=== PATIENT | female | born 1960 | race Caucasian/White ===

== ENCOUNTER 2022-12-09 04:53 | Observation (INO) ==
--- NOTE | 2022-10-07 15:44 | PAT Medication Instructions ---
Medication Instructions Date of Service October 07, 2022 Home Medications estradiol 0.5 mg tablet 0.5 mg PO QAM gabapentin 100 mg capsule 100 mg PO TID medroxyprogesterone 5 mg tablet 5 mg PO QAM meloxicam 15 mg tablet 15 mg PO QAM ASK your surgeon for instructions estradiol 0.5 mg tablet 0.5 mg PO QAM medroxyprogesterone 5 mg tablet 5 mg PO QAM meloxicam 15 mg tablet 15 mg PO QAM Take morning of surgery With a small sip of water, OTHERWISE NOTHING TO EAT OR DRINK AFTER MIDNIGHT: gabapentin 100 mg capsule 100 mg PO TID Take evening before surgery gabapentin 100 mg capsule 100 mg PO TID Other Notes If you have any questions please call us at [phone] or [phone] or [phone] or [phone]
--- NOTE | 2022-10-12 12:09 | Anesthesiology Consultation ---
Date of Service October 12, 2022 Assessment & Plan (1) Encounter for pre-operative examination: Chart Review Chart Review: Acceptable Risk for Surgery (pending PCP clearance (10/30/22)) and Patient seen in Pre Admission Testing - Awaiting PCP clearance (10/30/22) - Due to bilateral TKA- patient is NOT a Same Day Joint candidate. Pros and cons re: bilateral TKA discussed with patient. Pt wishes to proceed with bilateral TKA Per PAT appt on 10/12/22, patient denies any recent travel or large group activities. Pt is NOT vaccinated for Covid. Will leave to surgeon's discretion if preop Covid testing needed. Educated on importance of using Covid precautions one week prior to surgery Teaching & Discussion Pre-Anesthesia Teaching/Discussion Notes: Instructed NPO after midnight before surgery,except medications with 15 cc of water. Medication instructions provided according to the PAT guidelines. History Surgery Operation Date: 11/25/22 07:00 Proposed Procedures p Bilateral Total Knee Arthroplasty - Gonzalez Wilcox DO Height/Weight Height: 5 ft 4 in Weight: 66.3 kg Allergies Allergy/AdvReac Type Severity Reaction Status Date / Time oxycodone Allergy Mild itchy Verified 10/07/22 10:52 Medications Home Medications Medication Instructions Recorded Confirmed Last Taken estradiol 0.5 mg tablet 0.5 mg PO QAM 10/07/22 10/07/22 Unknown gabapentin 100 mg capsule 100 mg PO TID 10/07/22 10/07/22 Unknown medroxyprogesterone 5 mg tablet 5 mg PO QAM 10/07/22 10/07/22 Unknown meloxicam 15 mg tablet 15 mg PO QAM 10/07/22 10/07/22 Unknown Past Medical History Medical History History of COVID-19 07/2021--mild symptoms, no symptoms now Osteoarthritis Trigeminal neuralgia of left side of face Reason for gabapentin (dx'ed three years ago)- stable and controlled Exercise / Class Metabolic Activity II 4-5 Yardwork/Stairs/Walk up hill (one flight of stairs - no chest pain or SOB ) Past Family History Family History Other No family history of adverse response to anesthesia Past Surgical History Surgical History History of augmentation of both breasts History of endometrial ablation History of tooth extraction Past Anesthesia History No Hx of Anesthesia Complications (awareness with breast augmentation - unsure if intubated ) and No Family Hx of Anesthesia Complications (with exception to sister - PONV ) History of PONV No Hx of PONV and No Hx of Motion Sickness Social History Smoking Status: Former smoker Do You Dip or Chew Tobacco: No Smoking End Date: Quit 40yrs ago Hx Alcohol Use: Yes alcohol intake frequency: holidays/special occasions only Hx Substance Use: No substance use type: does not use Review of Systems Patient denies chest pain, shortness of breath, dyspnea on exertion, reflux, cough, wheezing, palpitations. No hx of seizures, stroke, [place], apnea/snoring. No hx of blood clots or blood transfusions Physical Exam Vital Signs VITALS BP 143/83 P 81 TEMP 98.4 SP02 98% RESP 16 Constitutional no acute distress ENMT Mouth: no TMJ clicking Thyromental Distance: < 3.5 Finger Breadths (2.5) Mallampati Class: II Missing molars Permanent top bridge Caps to top and bottom side teeth Neck neck extension not limited Respiratory normal respiratory effort; no respiratory distress Auscultation: lungs clear to auscultation bilaterally; no wheezes Cardiovascular Rate/Rhythm: regular rate and regular rhythm Heart Sounds: no murmur Vessels: no carotid bruit Musculoskeletal Spine: no pain with cervical ROM Extremities: extremities normal to inspection Psychiatric Orientation: alert Lab Results Anesthesia Preop Results Results Anesthesia Widget: WBC 5.61 K/ul (4.8-10.8) 10/12/22 Hgb 13.0 g/dl (12.0-16.0) 10/12/22 Hct 37.8 % (34.1-44.9) 10/12/22 Plt 344 K/uL (130-400) 10/12/22 Na 140 mmol/L (136-145) 10/12/22 K 4.5 mmol/L (3.5-5.1) 10/12/22 Cl 108 mmol/L (98-107) H 10/12/22 CO2 26 mmol/L (21-32) 10/12/22 BUN 16 mg/dl (6-23) 10/12/22 Creat 0.68 mg/dl (0.6-1.2) 10/12/22 Glucose Level 94 mg/dl (70-99(Fasting)) 10/12/22 PT 10.3 Seconds (9.0-12.0) 10/12/22 PTT 25.2 Seconds (21.0-31.0) 10/12/22 INR 1.0 (0.9-1.1) 10/12/22 HA1c 5.4 % (4.5-5.6) 10/12/22 Urine Color Yellow 10/12/22 Urine Appearance Clear (Clear) 10/12/22 Urine pH 6.0 (4.5-7.5) 10/12/22 Urine Specific [place] 1.016 (1.000-1.030) 10/12/22 Urine Protein Negative (Negative) 10/12/22 Urine Glucose (UA) Negative (Negative) 10/12/22 Urine Ketones Negative (Negative) 10/12/22 Urine Blood Trace (Negative) H 10/12/22 Urine Nitrite Negative (Negative) 10/12/22 Urine Bilirubin Negative (Negative) 10/12/22 Urine Urobilinogen Negative (Negative) 10/12/22 Urine Leukocyte Esterase Negative (Negative) 10/12/22 Urine WBC (Auto) 1-5 /hpf (0-5) 10/12/22 Urine RBC (Auto) 0-4 /hpf (0-4) 10/12/22 Urine Hyaline Casts (Auto) 1-5 /lpf (0-5) 10/12/22 Urine Epithelial Cells (Auto) 5-10 /lpf (0-5) H 10/12/22 Urine Bacteria (Auto) Negative (Negative) 10/12/22 Blood Type A Positive 10/12/22 Antibody Screen NEGATIVE 10/12/22 Testing Electrocardiogram Date: 10/12/22 Findings: + NSR @ (73bpm ) Incomplete RBBB Chest X-Ray Date: 10/12/22 Findings: + NAD FINDINGS: No pneumothorax. No pleural effusions. Peripheral linear scarlike densities within the right upper lobe are noted. Otherwise, the lungs are clear. Suspect mild emphysema. The heart is normal in size. COVID-19 Risk Screen Screening Information COVID-19 Screen Date: 10/12/22 Exposure 21 Days Family/Household +COVID Last 21 Days: No Exposure 10 Days Any COVID Exposure Last 10 Days: No Symptoms Last 10 Days Experienced COVID Sx Last 10 Days: No + COVID 0-90 Days COVID + in Last 0-90 Days: No Risk Plan COVID Risk Plan: No Risk Identified Patient Education COVID Preop Screening Education Complete: Yes
--- NOTE | 2022-11-11 08:11 | History & Physical Report ---
Date of Service November 11, 2022 date of surgery: 12/09/22 Procedure: Bilateral Total Knee Arthroplasty Surgeon: Gonzalez Wilcox Assessment & Plan (1) Degenerative arthritis of knee, bilateral: Plan: Risks and benefits of procedure discussed in detail today, patient would like to proceed with Bilateral total knee replacements at [facility] as scheduled. will obtain medical clearance prior to surgery as well as obtain PATs at [facility]. Will place on Xarelto x 1 month post op, f/u 2 weeks post op for routine post-operative care and x-ray, sooner if having any problems. will make arrangements for HHPT at the time of discharge. At this point in time, has failed conservative measures and would like to proceed with surgical intervention. The risks and benefits have been discussed including, but not limited to, risk of infection, nerve injury, stiffness, loss of motion, failure to improve, etc. Reasonable outcomes and options of treatment were discussed. An explanation of appropriate alternatives to the procedure that may be advantageous were discussed and their risks and benefits, as well as the risks and benefits of not proceeding with treatment. I offered to answer any additional inquiries concerning the treatment involved. All the patient's questions were answered. The patient is agreeable, understanding of the treatment plan and alternatives, and wishes to proceed with the treatment plan. History of Present Illness Chief Complaint: bilateral knee pain Primary Care Provider: Zoila Roberts PA-C Beth is a pleasant 62-year-old female who presents for preop evaluation prior to bilateral knee replacements. She states she been having pain in both knees for many years now which gradually worsened. She tried oral anti-inflammatories and Tylenol without relief. She had previous corticosteroid injections as well as viscosupplementation as well with minimal relief. at this point in time her pain is now affecting her daily activities and like to proceed with surgical invention Allergies Allergy/AdvReac Type Severity Reaction Status Date / Time oxycodone Allergy Mild itchy Verified 10/07/22 10:52 Home Medications Medication Instructions Recorded Confirmed Type estradiol 0.5 mg tablet 0.5 mg PO QAM 10/07/22 10/07/22 History gabapentin 100 mg capsule 100 mg PO TID 10/07/22 10/07/22 History medroxyprogesterone 5 mg tablet 5 mg PO QAM 10/07/22 10/07/22 History meloxicam 15 mg tablet 15 mg PO QAM 10/07/22 10/07/22 History Past Med/Surg History Medical History History of COVID-19 07/2021--mild symptoms, no symptoms now Osteoarthritis Trigeminal neuralgia of left side of face Reason for gabapentin (dx'ed three years ago)- stable and controlled Surgical History History of augmentation of both breasts History of endometrial ablation History of tooth extraction Family History Other No family history of adverse response to anesthesia Social History Smoking Status: Former smoker Second Hand Exposure: No; Hx Alcohol Use: Yes Hx Substance Use: No Preferred Language: Uzbek Communication Ability: Effective Manager Business Required: No Beliefs That Will Affect Care: None Current Living Situation: Alone Feels Safe at Home: Yes Assistive Devices: Glasses Review of Systems Review of Systems: All systems reviewed & are unremarkable except as noted in HPI & below Constitutional: no fever, no chills and no sweats Respiratory: no cough and no dyspnea Cardiovascular: no chest pain, no dyspnea and no orthopnea Gastrointestinal: no abdominal pain, no nausea and no vomiting Musculoskeletal: as per Subjective / HPI Physical Exam Physical Exam: HT: 5ft 4in WT: 66.3kg Constitutional: WD/WN, vitals as above no acute distress Respiratory: normal respiratory effort, lungs clear to auscultation no respiratory distress, no labored breathing and does not use accessory muscles Cardiovascular: RRR, no murmur, no edema Gastrointestinal (Abdomen): normal bowel sounds, soft, nontender, no hepatosplenomegaly Musculoskeletal: Bilateral knee Physical exam Overall patient has varus alignment bilaterally, there is no atrophy or ecchymosis noted, +1 suprapatellar effusion in both knees, positive tenderness to both medial and lateral joint lines right knee, more medial sided tenderness to the left knee. negative patellar apprehension, positive crepitation noted to both knees with active ROM. bilateral knees stable to valgus and varus stress, junie negative, posterior drawer negative. Range of motion right knee 0/3/110, left knee 0/3/115. lower extremities are neurovascularly intact, calf soft and non tender, DP pulse +2 bilaterally. Results & Data Results & Data ([facility]) Diagnostic Findings Bilateral Knee X-ray: bilateral knee series confirm advanced degenerative changes bilateral knees, greatest medial compartments and patellofemoral joints, showing joint space narrowing, osteophyte formation and subchondral sclerosis. no acute bony pathology noted.
[2022-12-09] MEDS ORDERED: ROPIVACAINE 0.5% HCL/PF 150 MG, BUPIVACAINE 0.75% MPF 20 ML, EPINEPHrine 30MG/30ML (OR ... INFIL SCH (06:00)
[2022-12-09] MEDS ORDERED: ACETAMINOPHEN 500 MG TAB PO SCH (06:00)
[2022-12-09] MEDS ORDERED: TRANEXAMIC ACID 1,000 MG **IV Pre-op IV SCH (06:00)
[2022-12-09] MEDS ORDERED: CeleBREX 200 MG CAP PO SCH (06:00)
[2022-12-09] MEDS ORDERED: LR 500ML BOLUS, THEN 15ML/HR IV SCH (06:00)
[2022-12-09] MEDS ORDERED: FAMOTIDINE 20 MG TAB PO SCH (06:00)
[2022-12-09] MEDS ORDERED: ceFAZolin 2000MG 2,000 MG/15 ML SYR IV SCH (06:00)
[2022-12-09] MEDS ORDERED: GABAPENTIN 600 MG DOSE PO SCH (06:00)
[2022-12-09] MEDS ORDERED: METOCLOPRAMIDE HCL 10 MG TABLET PO SCH (06:00)
[2022-12-09] MEDS ORDERED: dexAMETHasone 4 MG TAB PO SCH (06:00)
[2022-12-09] MEDS ORDERED: TRANEXAMIC ACID 1,000 MG **IV Intra-op IV SCH (06:00)
[2022-12-09] MEDS ORDERED: BUPIVACAINE 0.5 % 5 MG/1 ML PF 10ML VIAL ONE (06:22)
[2022-12-09] MEDS ORDERED: ROPIVACAINE 0.5% 5 MG/ML 30 ML VIAL ONE (06:22)
[2022-12-09] MEDS ORDERED: EPINEPHrine INJ 1 MG/ML AMP ONE (06:23)
[2022-12-09] MEDS ORDERED: MIDAZOLAM HCL 1 MG/ML 2ML VIAL ONE (06:31)
[2022-12-09] MEDS ORDERED: KETAMINE 50 MG/5 ML SYRINGE ONE (06:32)
[2022-12-09] MEDS ORDERED: KETOROLAC 30 MG/ML VIAL ONE (06:34)
[2022-12-09] MEDS ORDERED: ONDANSETRON INJ 2 MG/ML 2 ML VIAL ONE (06:34)
[2022-12-09] MEDS ORDERED: DEXAMETHASONE SOD INJ 4 MG/ML VIAL ONE (06:34)
[2022-12-09] MEDS ORDERED: LIDOCAINE 2% MPF LOCAL 5 ML VIAL INFIL ONE (06:34)
[2022-12-09] MEDS ORDERED: GLYCOPYRROLATE 0.2 MG/ML VIAL ONE (06:34)
--- NOTE | 2022-12-09 07:00 | History & Physical Bridge Note ---
Date of Service December 09, 2022 History & Physical Bridge Note I have examined the patient, reviewed the History & Physical and in the interval since the performance of the History & Physical I have noted the following changes of clinical significance: no changes noted
[2022-12-09] MEDS ORDERED: LABETALOL HCL IV 5 MG/ML 20ML IV PRN (07:17)
[2022-12-09] MEDS ORDERED: fentaNYL citrate 100 MCG/2 ML VIAL IV PRN (07:17)
[2022-12-09] MEDS ORDERED: ePHEDrine sulfate 50 MG/ML AMP IV PRN (07:17)
[2022-12-09] MEDS ORDERED: ATROPINE SULFATE 0.1 MG/ML 10ML SYR IV PRN (07:17)
[2022-12-09] MEDS ORDERED: MEPERIDINE HCL 25 MG/ML CARP/VIAL IV PRN (07:17)
[2022-12-09] MEDS ORDERED: ONDANSETRON INJ 2 MG/ML 2 ML VIAL IV PRN ×2 (07:17→11:45)
[2022-12-09] MEDS ORDERED: PHENYLEPHRINE 100MCG/ML 5ML SYR IV PRN (07:17)
[2022-12-09] MEDS ORDERED: ORTHO JOINT ANESTHETIC ONE (07:24)
--- NOTE | 2022-12-09 09:10 | Operative Report ---
Post Operative Report Pre & Post Diagnosis Operation Date: 12/09/22 07:15 Pre-Op Diagnosis: Degenerative arthritis of bilateral knee Post-Op Diagnosis: Degenerative arthritis of bilateral knee I identified the patient and participated in the time-out.: Yes Procedure Operation Date: 12/09/22 07:15 Actual Procedures p Bilateral Total Knee Arthroplasty(Bilateral) utilizing [employer] persona bilateral patient matched total knee arthroplasty right knee size 7 femur E tibia 10 medial constrained polytwenty 8 oval patella left knee 7 femur D tibia 10 polytwenty 8 oval patella- Gonzalez Wilcox DO Surgeon Gonzalez Wilcox DO Accounting Generalist Anselmo LEE Estimated Blood Loss 10 Findings Consistent with Post-Op Diagnosis Patient presents with severe end-stage DJD bilateral knees no response to conservative management she has varus alignment subchondral sclerosis marginal osteophytes moderate to large effusion no response to conservative management Specimens Bone and cartilage Drains Medium bore Hemovac Anesthesia Type MAC Spinal Regional Complications none Disposition Accompanied Patient To Recovery: No Disposition: Recovery Room Indications Patient presents with severe end-stage tricompartmental DJD failing attempted conservative management clinic physical therapy anti-inflammatories relative rest activity modification corticosteroid injection the above intraoperative findings were noted Description of Procedure After proper prepping and draping of the bilateral lower extremities, an anterior midline incision was made over the region of the extensor extensor mechanism of the left knee. After meticulous hemostasis was obtained and maintained in subcutaneous tissues a medial parapatellar incision was made The patella was subluxed lateralward the medial lateral gutter were cleaned from any hypertrophic synovitis and scar tissue of the distal femoral block was placed and the distal femoral osteotomy cut was made subsequently the chamfers anterior and posterior osteotomy cuts were made utilizing the 4-in-1 block the tibia was subsequently subluxed anteriorward medial and ateral meniscal remnants were excised in their entirety remnants of the anterior and posterior cruciate ligaments were excised in their entirety excellent exposure of the proximal tibia was obtained the tibial osteotomy guide was placed on the proximal tibial osteotomy cut was made once again the knee was irrigated with copious amounts of sterile saline solution the patella was subsequently everted lateralward thickened scar tissue around the patella was removed the patella was subsequently cut utilizing a freehand technique and was drilled prepared for final preparation and placement of patella socially flexion-extension gaps were checked and the equal and symmetric trials were placed to the appropriate femoral and tibial trials with poly-spacer being placed for equal flexion and extension gaps and full range of motion including extension to 0 and flexion to 140 the trial components after having been taken to recovery range of motion was subsequently removed meticulous hemostasis was obtained and maintained subsequently a knee block injection of joint cocktail including ropivacaine 0.5% 150 mg. Bupivacaine 0.5% epinephrine 1-200,030 mL's toradol 30 mg dexamethasone 4 mg ketamine 10 mg clonidine 100 micrograms normal saline solution 30 mg was infiltrated into the soft tissues of the posterior knee medial lateral gutters and periosteal synovium special attention was paid to protect neurovascular structures at all times subsequently trial components having been removed the knee was irrigated with sterile saline solution. debris was removed the proximal tibia was subsequently prepared and was made ready for the placement of the tibial component tibial component was also cemented and tamped into position the femoral component was subsequently placed and cemented in the position the patellar component was subsequently cemented in position because hemostasis once again obtained and maintained wound having been thoroughly irrigated with debridement and debridement lavage was performed as well as a medial parapatellar incision closed with #1 Vicryl in interrupted fashion subcutaneous was closed with #2 Vicryl skin was closed with skin clips Next, an anterior midline incision was made over the region of the extensor extensor mechanism of the right knee. After meticulous hemostasis was obtained and maintained in subcutaneous tissues a medial parapatellar incision was made The patella was subluxed lateralward the medial lateral gutter were cleaned from any hypertrophic synovitis and scar tissue of the distal femoral block was placed and the distal femoral osteotomy cut was made subsequently the chamfers anterior and posterior osteotomy cuts were made utilizing the 4-in-1 block the tibia was subsequently subluxed anteriorward medial and ateral meniscal remnants were excised in their entirety remnants of the anterior and posterior cruciate ligaments were excised in their entirety excellent exposure of the proximal tibia was obtained the tibial osteotomy guide was placed on the proximal tibial osteotomy cut was made once again the knee was irrigated with copious amounts of sterile saline solution the patella was subsequently everted lateralward thickened scar tissue around the patella was removed the patella was subsequently cut utilizing a freehand technique and was drilled prepared for final preparation and placement of patella socially flexion-extension gaps were checked and the equal and symmetric trials were placed to the appropriate femoral and tibial trials with poly-spacer being placed for equal flexion and extension gaps and full range of motion including extension to 0 and flexion to 140 the trial components after having been taken to recovery range of motion was subsequently removed meticulous hemostasis was obtained and maintained subsequently a knee block injection of joint cocktail including ropivacaine 0.5% 150 mg. Bupivacaine 0.5% epinephrine 1-200,030 mL's toradol 30 mg dexamethasone 4 mg ketamine 10 mg clonidine 100 micrograms normal saline solution 30 mg was infiltrated into the soft tissues of the posterior knee medial lateral gutters and periosteal synovium special attention was paid to protect neurovascular structures at all times subsequently trial components having been removed the knee was irrigated with sterile saline solution. debris was removed the proximal tibia was subsequently prepared and was made ready for the placement of the tibial component tibial component was also cemented and tamped into position the femoral component was subsequently placed and cemented in the position the patellar component was subsequently cemented in position because hemostasis once again obtained and maintained wound having been thoroughly irrigated with debridement and debridement lavage was performed as well as a medial parapatellar incision closed with #1 Vicryl in interrupted fashion subcutaneous was closed with #2 Vicryl skin was closed with skin clips.. PA-C was necessary for prepping and drapping as well as wound closure of deep fascia Sub cutaneous tissue and skin and was necessary for the case. A sterile compressive dressings were placed, patient was taken to recovery in stable condition of report dictated by Brenden I attest to the content of the Intraoperative Record and any orders documented therein. Any exceptions are noted below.Due to the complex nature of the procedure, the entire surgery was performed with the operational assistance of Anselmo LEE. The underwriting assistant, under direct supervision, was involved in the actual performance of all aspects of the surgical procedure including hemostasis, tissue retraction and incision, instrument management, patient positioning, and wound closure. I attest to the content of the Intraoperative Record and any orders documented therein. Any exceptions are noted below.
[2022-12-09] MEDS ORDERED: PROPOFOL IV EMULSION 10 MG/ML 20 ML VIAL IV ONE (09:29)
--- NOTE | 2022-12-09 10:51 | Anesthesiology Progress Note ---
Date of Service December 09, 2022 Anesthesia Post Procedure Vital Signs Vital Signs: Temp Pulse Pulse Resp BP BP Pulse Ox 12/09/22 10:45 75 19 119/81 99 12/09/22 10:40 67 14 129/82 100 12/09/22 10:30 36.3 C L 74 16 127/75 99 12/09/22 10:20 78 15 125/77 100 12/09/22 10:10 76 20 117/79 100 12/09/22 10:00 80 16 123/80 100 12/09/22 09:57 36.6 C 85 14 116/81 100 12/09/22 05:28 36.9 C 75 18 148/92 H 100 O2 Del Method O2 Flow Rate 12/09/22 10:45 Room Air 12/09/22 10:40 Room Air 12/09/22 10:30 Room Air 12/09/22 10:20 Room Air 12/09/22 10:10 Oxymask 3 12/09/22 10:00 Oxymask 6 12/09/22 09:57 Oxymask 6 12/09/22 05:28 Room Air Transfer of Care Handoff Completed per policy Notes Mental Status: alert / awake / arousable Patient Amnestic to Procedure: Yes Nausea / Vomiting: adequately controlled Pain: adequately controlled Airway Patency, RR, SpO2: stable & adequate BP & HR: stable & adequate Hydration State: stable & adequate Neuraxial Anesthesia: was administered and sensory block is resolving Anesthetic Complications: no major complications apparent and Pt Satisfied with anesthetic care
--- NOTE | 2022-12-09 11:04 | XRay Report ---
XR knee LT 1 or 2V routine, XR knee RT 1 or 2V routine CLINICAL HISTORY: Surgical Post Op TECHNIQUE: 2 views of the bilateral knees were obtained. Comparison: Comparison is made to knee radiographs for 317 FINDINGS: Patient is status post total knee arthroplasty with expected postsurgical changes including soft tiss ue swelling and subcutaneous emphysema. No periarticular lucency or hardware fracture is seen. IMPRESSION: Expected postoperative changes of bilateral total knee arthroplasty. ACT 112: Negative or not required by law. Electronically signed by: Dion Monte M.D. 12/09/2022 11:02 AM
[2022-12-09] MEDS ORDERED: bisacodyL 10 MG SUPP PR PRN (11:45)
[2022-12-09] MEDS ORDERED: HYDROmorphone INJ 0.5 MG/0.5 ML SYR IV PRN (11:45)
[2022-12-09] MEDS ORDERED: NALOXONE HCL 0.4 MG/1 ML VIAL/CARP IV PRN (11:45)
[2022-12-09] MEDS ORDERED: MAGNESIUM HYDROXIDE SUSP 30 ML UDC PO PRN (11:45)
[2022-12-09] MEDS: SODIUM CHLORIDE 0.9% 1000ML 1,000 ML IV SCH ×3 (11:55→22:20)
[2022-12-09] MEDS: HYDROCODONE/ACETAMOPHEN 5/325MG TAB PO PRN ×2 (15:26→20:32)
[2022-12-09] MEDS: GABAPENTIN 100 MG CAP PO SCH ×2 (16:04→20:34)
--- NOTE | 2022-12-09 17:00 | Hospitalist Consultation ---
Date of Consultation December 09, 2022 Assessment & Plan (1) Degenerative arthritis of knee, bilateral: POD#[address] Wilcox Activity and wound care orders as per ortho Pain control with bowel regimen PT/OT Monitor H/H for acute blood loss anemia and transfuse blood products PRN EBL 10cc (2) Post-menopause on HRT (hormone replacement therapy): On estradiol and medroxyprogesterone (3) Trigeminal neuralgia of left side of face: Continue gabapentin DVT PROPHYLAXIS Xalerto as per ortho Thank you for this consultation. We will follow the patient with you during their hospital stay. You can reach a member of the [facility] Hospitalist Team 14/06 via the [facility] Hospitalist role in [place] Text. Supervising Physician Co-Signing Physician Notes I have seen and examined the patient and have discussed the case with the provider above. I agree with the assessment and plan as stated. 62 yo F here for bilateral knee surgery. Minimal medications or health problems. She is doing fine post operatively. Some residual spinal block present with numbness. Small pain in her upper left thigh. Ice and surgical dressings with drains in place. Physical exam is otherwise unremarkable. We discussed the hold on her HRT as this will likely cause a significant withdrawal. Per ortho, they have addressed this with the patient and are holding based on current post operative guidelines for two weeks time. Other medications reviewed. Thank you for this consultation and we will continue to follow with the patient throughout her hospital stay. DO Gaetano History of Present Illness Reason for Consultation: Postop medical management Requesting Physician: Dr. Wilcox Attending Physician: Gonzalez Wilcox DO History of Present Illness 62-year-old female with PMH osteoarthritis, trigeminal neuralgia, postmenopausal on HRT, and other problems listed below who is s/p bilateral TKA today by Dr. Wilcox. Postoperatively, the patient is doing well. She reports her pain is well controlled. She reports some mild residual numbness and tingling to the bilateral lower extremities. No chest pain or shortness of breath. Denies a bdominal pain and nausea. No lightheadedness or dizziness. Patient reports voiding several times since surgery. Allergies Allergy/AdvReac Type Severity Reaction Status Date / Time oxycodone Allergy Mild itchy Verified 12/09/22 05:26 Home Medications Medication Instructions Recorded Confirmed Type estradiol 0.5 mg tablet (Estrace) 0.5 mg PO QAM 10/07/22 12/09/22 History gabapentin 100 mg capsule 100 mg PO TID 10/07/22 12/09/22 History medroxyprogesterone 5 mg tablet 5 mg PO QAM 10/07/22 12/09/22 History (Provera) meloxicam 15 mg tablet 15 mg PO QAM 10/07/22 12/09/22 History acetaminophen 500 mg tablet 1,000 mg PO Q8H 21 days #126 tabs 12/10/22 Rx (Tylenol Extra Strength) cefadroxil 500 mg capsule 500 mg PO BID 14 days #28 caps 12/10/22 Rx diphenhydramine HCl 25 mg capsule 25 mg PO Q8 PRN itching #30 caps 12/10/22 Rx (Benadryl) docusate sodium 100 mg capsule 100 mg PO BID 10 days #20 caps 12/10/22 Rx oxycodone 5 mg tablet 5 - 10 mg PO Q6H PRN pain #30 tabs 12/10/22 Rx rivaroxaban 10 mg tablet (Xarelto) 10 mg PO DAILY 28 days #28 tabs 12/10/22 Rx Patient History Medical History History of COVID-19 07/2021--mild symptoms, no symptoms now Osteoarthritis Post-menopause on HRT (hormone replacement therapy) Trigeminal neuralgia of left side of face Reason for gabapentin (dx'ed three years ago)- stable and controlled Surgical History History of augmentation of both breasts History of endometrial ablation History of tooth extraction Family History Father Lung cancer Mother Scleroderma Other No family history of adverse response to anesthesia Social History (Updated 12/09/22 @ 16:52 by ALENA Coburn) Smoking Status: Former smoker Smoking End Date: Quit 40yrs ago; Second Hand Exposure: No; Do You Dip or Chew Tobacco: No; Tobacco Cessation Education Requested by Patient: No Hx Alcohol Use: Yes Alcohol Intake Frequency: 2-4 x/Month Hx Substance Use: No Preferred Language: Argentine Communication Ability: Effective Stippler Required: No Beliefs That Will Affect Care: None Current Living Situation: Alone Other Information That Helps Us Care for You: No Feels Safe at Home: Yes Safety Concerns: Feels Safe At This Time Assistive Devices: Glasses Review of Systems Review of Systems: ROS per HPI, all other systems reviewed and negative Physical Exam Constitutional: WD/WN, vitals as above Eyes: PERRL, conjunctivae normal, anicteric sclerae ENMT: external ear and nose normal, oropharynx normal Respiratory: normal respiratory effort, lungs clear to auscultation Cardiovascular: Rate/Rhythm: regular rate and regular rhythm Vessels: normal peripheral pulses Extremities: no edema Gastrointestinal (Abdomen): normal bowel sounds, soft, nontender, no hepatosplenomegaly Musculoskeletal: S/p bilateral knee surgery, surgical dressings CDI, drains in place to both knees draining bloody drainage, CSM checks intact BLE Skin: no rashes, warm and dry Neurologic: PERRL, EOMI, accommodation nl, no face palsy, no dysarthria Psychiatric: A+Ox3, euthymic affect Results & Data Results & Data ([facility]) Vital Signs (Past 12 Hours) Vital Signs Temp Pulse Pulse Resp BP BP Pulse Ox 12/09/22 15:05 36.9 C 87 16 123/81 98 12/09/22 13:30 87 17 137/81 97 12/09/22 13:15 89 20 136/90 97 12/09/22 12:15 67 12 102/70 97 12/09/22 11:45 57 L 12 111/69 97 12/09/22 11:15 62 14 116/78 98 12/09/22 11:00 72 15 121/81 99 12/09/22 10:45 75 19 119/81 99 12/09/22 10:40 67 14 129/82 100 12/09/22 10:30 36.3 C L 74 16 127/75 99 12/09/22 10:20 78 15 125/77 100 12/09/22 10:10 76 20 117/79 100 12/09/22 10:00 80 16 123/80 100 12/09/22 09:57 36.6 C 85 14 116/81 100 12/09/22 05:28 36.9 C 75 18 148/92 H 100 O2 Del Method O2 Flow Rate 12/09/22 15:05 Room Air 12/09/22 13:30 Room Air 12/09/22 13:15 Room Air 12/09/22 12:15 Room Air 12/09/22 11:45 Room Air 12/09/22 11:15 Room Air 12/09/22 11:00 Room Air 12/09/22 10:45 Room Air 12/09/22 10:40 Room Air 12/09/22 10:30 Room Air 12/09/22 10:20 Room Air 12/09/22 10:10 Oxymask 3 12/09/22 10:00 Oxymask 6 12/09/22 09:57 Oxymask 6 12/09/22 05:28 Room Air
[2022-12-09] MEDS: ceFAZolin 2000MG 2,000 MG/15 ML SYR IV SCH (19:10)
[2022-12-09] MEDS: DOCUSATE SODIUM 100 MG CAP PO SCH (20:33)
[2022-12-09] MEDS: SENNA 8.6 MG TAB PO SCH (20:34)
[2022-12-10] MEDS: ceFAZolin 2000MG 2,000 MG/15 ML SYR IV SCH (01:49)
[2022-12-10] MEDS: HYDROCODONE/ACETAMOPHEN 5/325MG TAB PO PRN (03:15)
[2022-12-10 06:08] LABS: Hematocrit (blood only) 31.9 % (34.1-44.9); Hemoglobin 10.7 g/dl (12.0-16.0); Mean Corpuscular Hemoglobin 29.8 pg (25.0-34.0); Mean Corpuscular Hgb Conc 33.5 g/dL (32.0-36.0); Mean Corpuscular Volume 88.9 fL (80.0-100.0); Platelet Count 336 K/uL (130-400); RDW Coefficient of Variation 12.4 % (11.5-14.5); RDW Standard Deviation 40.1 fL (36.4-46.3); Red Blood Count 3.59 M/uL (3.93-5.22); White Blood Count 9.96 K/ul (4.8-10.8)
[2022-12-10 06:30] LABS: Calcium 8.2 mg/dl (8.5-10.1)
[2022-12-10 06:36] LABS: BUN Creatinine Ratio 14.9 (10-20); Creatinine Clr Calc Pharmacy 77.1 ml/min; Est GFR (African American) 110.7 ml/min; Est GFR (Non-African American) 95.5 ml/min
[2022-12-10] MEDS ORDERED: oxyCODONE HCL IR 5 MG TAB (IMMEDIATE RELEASE) PO PRN (07:04)
[2022-12-10] MEDS ORDERED: diphenhydrAMINE Capsule 25 MG CAP PO PRN (07:08)
--- NOTE | 2022-12-10 07:21 | Orthopedic Progress Note ---
Date of Service December 10, 2022 Assessment & Plan (1) History of total bilateral knee replacement: Plan: POD #1 s/p Bilateral TKAs pt/ot dvt proph with GRAYSON/SCD/xarelto x 1 month plan for d/c home with HHPT, will d/c hemovacs prior to d/c poor pain control, currently ordered Hydrocodone due to prior rxn to Oxycodone over 20 years ago, she states she had "itchiness". will switch to oxycodone this am to see if she tolerates this better, also order Benadryl prn. added Acetaminophen 1000mg tid. discussed if she has issues with Oxy, would switch back to [place] and possibly increase dose. Currently on Xarelto so unable to use Celebrex as well, has Dilaudid ordered for breakthrough pain. will see how she tolerates PT prior to d.c. Admission and Anticipated Discharge Date Admission Date: December 09, 2022 Supervising Physician Co-Signing Physician Notes Patient noted to have significant pain control issues this morning. She appears more comfortable currently. She was able to get up and walk to the bathroom with physical therapy. She does state that she has a little lightheaded, dizzy, and nauseous with sitting and standing. She will likely need to stay in the hospital at least until tomorrow. Subjective POD #1 s/p Bilateral TKAs Review of Systems Constitutional: no fever, no chills and no sweats Respiratory: no cough and no dyspnea Cardiovascular: no chest pain and no dyspnea Gastrointestinal: no abdominal pain, no nausea and no vomiting Physical Exam Physical Exam: Vital Signs Temp 36.8 C 12/10/22 04:06 Pulse 73 12/10/22 04:06 Resp 18 12/10/22 04:06 BP 125/83 12/10/22 04:06 Pulse Ox 100 12/10/22 04:06 O2 Del Method 12/10/22 04:06 O2 Flow Rate 3 12/09/22 10:10 Intake & Output 12/09/22 12/10/22 12/10/22 18:59 06:59 18:59 Intake Total 2406.667 / 4606.66 7 2200 / 4606.667 Output Total 1385 / 2785 1400 / 2785 Balance 1021.667 / 1821.66 7 800 / 1821.667 Weight 65.4 kg Intake: IV 656.667 / 2656.667 2000 / 2656.667 Lactated Ringe r's 1,000 ml @ 15 0 / 0 mls/hr IV .Q24 H [place] Rx#: [id number] Sodium Chlorid e 0.9% 1000ML 1, 656.667 / 2656.667 2000 / 2656.667 000 ml @ 100 m ls/hr IV .Q10H [place] Rx#:[id number] Tranexamic Aci d / 0.7% NaCl 1, 0 / 0 000 mg In 100 ml @ 600 mls/hr IV TODAY@0600 [place] Rx#:[id number] IV Perioperative 1450 / 1450 Oral 300 / 500 200 / 500 Output: Urine 1225 / 1225 Estimated Blood Loss Other 1125 / 1125 Drain Output 150 / 425 275 / 425 Left Hemovac # 1 70 / 195 125 / 195 Right Hemovac #1 80 / 230 150 / 230 Musculoskeletal: Bilateral lower extremities: NVDI, calf SNT, negative alissa sign. DP palpable, able to wiggle toes/ankle movement without difficulty. dressing clean dry and intact. Results & Data ([facility]) Vital Signs (Past 12 Hours) Vital Signs Temp Pulse Resp BP Pulse Ox O2 Del Method 12/10/22 04:06 36.8 C 73 18 125/83 100 Room Air 12/09/22 22:06 36.9 C 70 18 125/76 100 Room Air 12/09/22 20:30 Room Air Laboratory Results Laboratory Results WBC 9.96 K/ul (4.8-10.8) 12/10/22 05:16 RBC 3.59 M/uL (3.93-5.22) L 12/10/22 05:16 Hgb 10.7 g/dl (12.0-16.0) L 12/10/22 05:16 Hct 31.9 % (34.1-44.9) L 12/10/22 05:16 MCV 88.9 fL (80.0-100.0) 12/10/22 05:16 MCH 29.8 pg (25.0-34.0) 12/10/22 05:16 MCHC 33.5 g/dL (32.0-36.0) 12/10/22 05:16 RDW Std Deviation 40.1 fL (36.4-46.3) 12/10/22 05:16 RDW Coeff of Moon 12.4 % (11.5-14.5) 12/10/22 05:16 Plt Count 336 K/uL (130-400) 12/10/22 05:16 MPV 10.0 fL (9.4-12.3) 12/10/22 05:16 Sodium 140 mmol/L (136-145) 12/10/22 05:16 Potassium 4.0 mmol/L (3.5-5.1) 12/10/22 05:16 Chloride 110 mmol/L (98-107) H 12/10/22 05:16 Carbon Dioxide 25 mmol/L (21-32) 12/10/22 05:16 Anion Gap 5 (3-11) 12/10/22 05:16 BUN 10 mg/dl (6-23) 12/10/22 05:16 Creatinine 0.67 mg/dl (0.6-1.2) 12/10/22 05:16 Est Cr Clr Drug Dosing 77.1 ml/min 12/10/22 05:16 Est GFR ( Amer) 110.7 ml/min 12/10/22 05:16 Est GFR (Non-Af Amer) 95.5 ml/min 12/10/22 05:16 BUN/Creatinine Ratio 14.9 (10-20) 12/10/22 05:16 Glucose 100 mg/dl (70-99(Fasting)) H 12/10/22 05:16 Calcium 8.2 mg/dl (8.5-10.1) L 12/10/22 05:16 SARS-CoV-2, RNA, NAAT NEGATIVE (NEGATIVE) 12/09/22 Unknown Diagnostic Findings Impressions Knee X-Ray 12/09/22 10:37 XR knee LT 1 or 2V routine, XR knee RT 1 or 2V routine CLINICAL HISTORY: Surgical Post Op TECHNIQUE: 2 views of the bilateral knees were obtained. Comparison: Comparison is made to knee radiographs for 317 FINDINGS: Patient is status post total knee arthroplasty with expected postsurgical changes including soft tissue swelling and subcutaneous emphysema. No periarticular lucency or hardware fracture is seen. IMPRESSION: Expected postoperative changes of bilateral total knee arthroplasty. ACT 112: Negative or not required by law. Electronically signed by: Dion Monte M.D. 12/09/2022 11:02 AM
[2022-12-10] MEDS: ACETAMINOPHEN 500 MG TAB PO SCH ×2 (07:44→15:32)
[2022-12-10] MEDS: KETOROLAC 30 MG/ML VIAL IV SCH ×3 (08:45→20:46)
[2022-12-10] MEDS: DOCUSATE SODIUM 100 MG CAP PO SCH ×2 (08:56→20:46)
[2022-12-10] MEDS: GABAPENTIN 100 MG CAP PO SCH ×3 (08:56→20:43)
[2022-12-10] MEDS: MULTIVITAMIN TAB PO SCH (08:56)
[2022-12-10] MEDS: RIVAROXABAN 10 MG TABLET PO SCH (08:56)
[2022-12-10] MEDS ORDERED: estradioL 1 MG TAB PO SCH (09:00)
--- NOTE | 2022-12-10 11:11 | Hospitalist Progress Note ---
Date of Service December 10, 2022 Assessment & Plan (1) Degenerative arthritis of knee, bilateral: Plan: POD#[address] Wilcox Activity and wound care orders as per ortho Pain control optimized today with bowel regimen Monitor H/H for acute blood loss anemia and transfuse blood products PRN EBL 10cc, hgb 10.7 today (pre-op 13). Continue to monitor PT/OT (2) Post-menopause on HRT (hormone replacement therapy): Plan: On estradiol and medroxyprogesterone at home (on hold now) (3) Trigeminal neuralgia of left side of face: Plan: Continue gabapentin DVT PROPHYLAXIS Xalerto as per ortho Thank you for this consultation. We will follow the patient with you during their hospital stay. You can reach a member of the [facility] Hospitalist Team 14/06 via the [facility] Hospitalist role in [place] Text. A total of 35 minutes were spent with greater than 50% of that time face to face with the patient, personally reviewing all current laboratories, imaging studies, past medication reconciliation, outpatient chart review, and discussion with specialists to collaborate care for the patient with attending. Please see attending documentation for corrections and/or additions. Admission and Anticipated Discharge Date Admission Date: December 09, 2022 Supervising Physician Co-Signing Physician Notes Patient seen and examined by me, care coordinated with Michelle Matthew PA-C, please refer to her note above for further. Patient is status post bilateral TKA yesterday. Currently sitting up in bed in no acute distress. Overnight reported pain, however now overall pain is much better controlled and patient feels well. Reports she was doing exercises in bed as directed by PT. Eating well no nausea. Passing flatus, no BM. Urinating without difficulty. Moving lower extremities. Heart sounds regular. Lungs clear to auscultation. Abdomen soft nontender nondistended. Seen by orthopedics earlier today, pain management adjusted. Plan likely for discharge with home health. H&H checked, some postoperative anemia versus dilutional. No need for blood transfusion, expected. Continue to closely monitor while in the hospital. MD Destiny Subjective Seen and examined in 304. Had issues with pain control overnight that have improved this morning. Starting to be able to ambulate although painful. Some dizziness with positional change and standing. Resolves when sitting or lying down. Tolerating diet without nausea and vomiting. No fever, chills, chest pain or shortness of breath, dysuria. Passing flatus. POD #1 s/p Bilateral TKAs Review of Systems Review of Systems: At least ten systems reviewed and negative except as noted in the HPI. Physical Exam Physical Exam: Gen: WD/WN, NAD, sitting up in bed, A&Ox3 HEENT: Normocephalic, atraumatic, conjunctivae moist, sclerae anicteric, mucous membranes moist Lung: Clear to Auscultation bilaterally, no wheezes/rales/rhonchi Heart: Regular rate, regular rhythm, no murmurs, rubs, or gallops Abdomen: Soft, NT, ND +BS x 4 Extremities: +Knee with dressing c/d/i, ice. No edema Skin: Warm, no rash Results & Data Results & Data ([facility]) Vital Signs (Past 12 Hours) Vital Signs Temp Pulse Resp BP Pulse Ox O2 Del Method 12/10/22 07:41 36.8 C 70 17 149/82 H 100 Room Air 12/10/22 04:06 36.8 C 73 18 125/83 100 Room Air Laboratory Results Short CBC 12/10/22 Range/Units 05:16 WBC 9.96 (4.8-10.8) K/ul Hgb 10.7 L (12.0-16.0) g/dl Hct 31.9 L (34.1-44.9) % Plt Count 336 (130-400) K/uL BMP 12/10/22 05:16 Sodium 140 Potassium 4.0 Chloride 110 H Carbon Dioxide 25 BUN 10 Creatinine 0.67 Glucose 100 H Calcium 8.2 L Diagnostic Findings Knee X-Ray 12/09/22 10:37 XR knee LT 1 or 2V routine, XR knee RT 1 or 2V routine CLINICAL HISTORY: Surgical Post Op TECHNIQUE: 2 views of the bilateral knees were obtained. Comparison: Comparison is made to knee radiographs for 317 FINDINGS: Patient is status post total knee arthroplasty with expected postsurgical changes including soft tissue swelling and subcutaneous emphysema. No periarticular lucency or hardware fracture is seen. IMPRESSION: Expected postoperative changes of bilateral total knee arthroplasty. ACT 112: Negative or not required by law. Electronically signed by: Dion Monte M.D. 12/09/2022 11:02 AM Knee X-Ray 12/09/22 10:37 XR knee LT 1 or 2V routine, XR knee RT 1 or 2V routine CLINICAL HISTORY: Surgical Post Op TECHNIQUE: 2 views of the bilateral knees were obtained. Comparison: Comparison is made to knee radiographs for 317 FINDINGS: Patient is status post total knee arthroplasty with expected postsurgical changes including soft tissue swelling and subcutaneous emphysema. No periarticular lucency or hardware fracture is seen.
[2022-12-10] MEDS: oxyCODONE HCL IR 5 MG TAB (IMMEDIATE RELEASE) PO PRN ×3 (12:32→20:44)
[2022-12-10] MEDS: SENNA 8.6 MG TAB PO SCH (20:43)
[2022-12-11] MEDS: ACETAMINOPHEN 500 MG TAB PO SCH ×2 (00:20→08:24)
[2022-12-11] MEDS: oxyCODONE HCL IR 5 MG TAB (IMMEDIATE RELEASE) PO PRN ×4 (01:11→13:17)
[2022-12-11] MEDS: KETOROLAC 30 MG/ML VIAL IV SCH ×3 (02:02→14:30)
[2022-12-11 06:46] LABS: Hematocrit (blood only) 34.1 % (34.1-44.9); Hemoglobin 11.3 g/dl (12.0-16.0); Mean Corpuscular Hemoglobin 30.1 pg (25.0-34.0); Mean Corpuscular Hgb Conc 33.1 g/dL (32.0-36.0); Mean Corpuscular Volume 90.9 fL (80.0-100.0); Mean Platelet Volume 9.7 fL (9.4-12.3); Platelet Count 291 K/uL (130-400); RDW Coefficient of Variation 12.6 % (11.5-14.5); RDW Standard Deviation 41.4 fL (36.4-46.3); Red Blood Count 3.75 M/uL (3.93-5.22); White Blood Count 7.01 K/ul (4.8-10.8)
[2022-12-11 08:18] LABS: Calcium 8.4 mg/dl (8.5-10.1); Potassium 3.9 mmol/L (3.5-5.1)
[2022-12-11] MEDS: GABAPENTIN 100 MG CAP PO SCH ×2 (08:23→14:30)
[2022-12-11 08:24] LABS: BUN Creatinine Ratio 16.9 (10-20); Creatinine Clr Calc Pharmacy 72.8 ml/min; Est GFR (African American) 107.3 ml/min; Est GFR (Non-African American) 92.6 ml/min
[2022-12-11] MEDS: RIVAROXABAN 10 MG TABLET PO SCH (08:24)
[2022-12-11] MEDS: MULTIVITAMIN TAB PO SCH (08:24)
[2022-12-11] MEDS: DOCUSATE SODIUM 100 MG CAP PO SCH (08:24)
--- NOTE | 2022-12-11 09:37 | Orthopedic Progress Note ---
Date of Service December 11, 2022 Assessment & Plan (1) History of total bilateral knee replacement: Plan: POD #2 s/p Bilateral TKAs PT/OT protocols. Weightbearing as tolerated. Continue PT protocol and we will see how she ambulates today. We discussed that we would like to see her ambulating out in the hallways before having her go home. DVT proph with GRAYSON/SCD/xarelto x 1 month Plan for d/c home with HHPT -plan for discharge today if patient is ambulating w ell. Pain management-oxycodone, acetaminophen, Toradol, hydromorphone -pain control is much better today. Admission and Anticipated Discharge Date Admission Date: December 09, 2022 Subjective Postop day 2 Patient currently sitting up in bed awake and alert. Patient states that she is due for some pain medication. She is starting to have some increased pain but has been overall, controlled fairly well through the night. She states he has some discomfort yesterday that was not controlled however once she was able to get the scheduling down, that she has been having much better pain control. Patient states that she ambulated to the bathroom yesterday but however that was at. No other complaints at this time. Denies shortness of breath, chest pain, lightheadedness. Physical Exam Physical Exam: Tracee dressings are clean, dry, and intact. Functioning well. Calves are soft nontender. Neurovascular intact. Toes are mobile. Mild swelling in both knees consistent with surgery. Hemovac drains have been removed. Results & Data ([facility]) Vital Signs (Past 12 Hours) Vital Signs Temp Pulse Pulse Resp BP Pulse Ox O2 Del Method 12/11/22 07:43 36.5 C 64 15 128/76 100 Room Air 12/10/22 21:30 36.8 C 68 18 127/74 100 Room Air Laboratory Results Laboratory Results WBC 7.01 K/ul (4.8-10.8) 12/11/22 06:24 RBC 3.75 M/uL (3.93-5.22) L 12/11/22 06:24 Hgb 11.3 g/dl (12.0-16.0) L 12/11/22 06:24 Hct 34.1 % (34.1-44.9) 12/11/22 06:24 MCV 90.9 fL (80.0-100.0) 12/11/22 06:24 MCH 30.1 pg (25.0-34.0) 12/11/22 06:24 MCHC 33.1 g/dL (32.0-36.0) 12/11/22 06:24 RDW Std Deviation 41.4 fL (36.4-46.3) 12/11/22 06:24 RDW Coeff of Moon 12.6 % (11.5-14.5) 12/11/22 06:24 Plt Count 291 K/uL (130-400) 12/11/22 06:24 MPV 9.7 fL (9.4-12.3) 12/11/22 06:24 Sodium 140 mmol/L (136-145) 12/11/22 06:24 Potassium 3.9 mmol/L (3.5-5.1) 12/11/22 06:24 Chloride 107 mmol/L (98-107) 12/11/22 06:24 Carbon Dioxide 28 mmol/L (21-32) 12/11/22 06:24 Anion Gap 5 (3-11) 12/11/22 06:24 BUN 12 mg/dl (6-23) 12/11/22 06:24 Creatinine 0.71 mg/dl (0.6-1.2) 12/11/22 06:24 Est Cr Clr Drug Dosing 72.8 ml/min 12/11/22 06:24 Est GFR ( Amer) 107.3 ml/min 12/11/22 06:24 Est GFR (Non-Af Amer) 92.6 ml/min 12/11/22 06:24 BUN/Creatinine Ratio 16.9 (10-20) 12/11/22 06:24 Glucose 87 mg/dl (70-99(Fasting)) 12/11/22 06:24 Calcium 8.4 mg/dl (8.5-10.1) L 12/11/22 06:24 SARS-CoV-2, RNA, NAAT NEGATIVE (NEGATIVE) 12/09/22 Unknown
--- NOTE | 2022-12-11 13:24 | Hospitalist Progress Note ---
Date of Service December 11, 2022 Assessment & Plan (1) Degenerative arthritis of knee, bilateral: Plan: POD#[address] Wilcox Activity and wound care orders as per ortho Pain control optimized today with bowel regimen Monitor H/H for acute blood loss anemia and transfuse blood products PRN EBL 10cc, hgb 10.7 today --> 11.3. Continue to monitor PT/OT (2) Post-menopause on HRT (hormone replacement therapy): Plan: On estradiol and medroxyprogesterone at home (on hold now) (3) Trigeminal neuralgia of left side of face: Plan: Continue gabapentin DVT PROPHYLAXIS Xalerto as per ortho Thank you for this consultation. We will follow the patient with you during their hospital stay. You can reach a member of the [facility] Hospitalist Team 14/06 via the [facility] Hospitalist role in [place] Text. A total of 25 minutes were spent with greater than 50% of that time face to face with the patient, personally reviewing all current laboratories, imaging studies, past medication reconciliation, outpatient chart review, and discussion with specialists to collaborate care for the patient with attending. Please see attending documentation for corrections and/or additions. Admission and Anticipated Discharge Date Admission Date: December 09, 2022 Supervising Physician Co-Signing Physician Notes Patient seen and examined by me, care coordinated with Michelle Matthew PA-C, please refer to her note above for further detail. Patient is status post bilateral TKA. Currently sitting up in bed in no acute distress. Pain is much better controlled and patient feels well. She has been able to ambulate within her room, plans to work with PT again later today. Passing flatus, no BM. Urinating without difficulty. Heart sounds regular. Lungs clear to auscultation. Abdomen soft nontender nondistended. H&H stable Seen by orthopedics earlier today, possibly discharge with home health later today if ok w/ PT. MD Destiny Subjective Patient seen and examined in 304. Feeling much better today after pain was adequately controlled last evening and she is able to rest. Still has not ambulated outside of her room but plans to do so today with therapy. Is able to ambulate with walker. Denies any new symptoms overnight. No fever, chills, chest pain, shortness of breath. Tolerating diet without issue. No nausea or vomiting. Denies any dysuria, diarrhea or constipation. Passing flatus but no postop bowel movement yet. Review of Systems Review of Systems: At least ten systems reviewed and negative except as noted in the HPI. Physical Exam Physical Exam: Gen: WD/WN, NAD, sitting up in bed, A&Ox3 HEENT: Normocephalic, atraumatic, conjunctivae moist, sclerae anicteric, mucous membranes moist Lung: Clear to Auscultation bilaterally, no wheezes/rales/rhonchi Heart: Regular rate, regular rhythm, no murmurs, rubs, or gallops Abdomen: Soft, NT, ND +BS x 4 Extremities: +Knee with dressing c/d/i, ice. No edema Skin: Warm, no rash Results & Data Results & Data ([facility]) Vital Signs (Past 12 Hours) Vital Signs Temp Pulse Resp BP Pulse Ox O2 Del Method 12/11/22 11:27 36.5 C 75 14 110/68 98 Room Air 12/11/22 07:43 36.5 C 64 15 128/76 100 Room Air Laboratory Results Short CBC 12/11/22 Range/Units 06:24 WBC 7.01 (4.8-10.8) K/ul Hgb 11.3 L (12.0-16.0) g/dl Hct 34.1 (34.1-44.9) % Plt Count 291 (130-400) K/uL BMP 12/11/22 06:24 Sodium 140 Potassium 3.9 Chloride 107 Carbon Dioxide 28 BUN 12 Creatinine 0.71 Glucose 87 Calcium 8.4 L Diagnostic Findings Knee X-Ray 12/09/22 10:37 XR knee LT 1 or 2V routine, XR knee RT 1 or 2V routine CLINICAL HISTORY: Surgical Post Op TECHNIQUE: 2 views of the bilateral knees were obtained. Comparison: Comparison is made to knee radiographs for 317 FINDINGS: Patient is status post total knee arthroplasty with expected postsurgical changes including soft tissue swelling and subcutaneous emphysema. No periarticular lucency or hardware fracture is seen. IMPRESSION: Expected postoperative changes of bilateral total knee arthroplasty. ACT 112: Negative or not required by law. Electronically signed by: Dion Monte M.D. 12/09/2022 11:02 AM Knee X-Ray 12/09/22 10:37 XR knee LT 1 or 2V routine, XR knee RT 1 or 2V routine CLINICAL HISTORY: Surgical Post Op TECHNIQUE: 2 views of the bilateral knees were obtained. Comparison: Comparison is made to knee radiographs for 317 FINDINGS: Patient is status post total knee arthroplasty with expected postsurgical changes including soft tissue swelling and subcutaneous emphysema. No periarticular lucency or hardware fracture is seen.
--- NOTE | 2022-12-15 11:20 | Discharge Summary ---
Date of Service December 15, 2022 Admission HPI Per Admitting Provider Beth is a pleasant 62-year-old female who presents for preop evaluation prior to bilateral knee replacements. She states she been having pain in both knees for many years now which gradually worsened. She tried oral anti-inflammatories and Tylenol without relief. She had previous corticosteroid injections as well as viscosupplementation as well with minimal relief. at this point in time her pain is now affecting her daily activities and like to proceed with surgical invention Admission Exam Per Admitting Provider Physical Exam: HT: 5ft 4in WT: 66.3kg Constitutional: WD/WN, vitals as above no acute distress Respiratory: normal respiratory effort, lungs clear to auscultation no respiratory distress, no labored breathing and does not use accessory muscles Cardiovascular: RRR, no murmur, no edema Gastrointestinal (Abdomen): normal bowel sounds, soft, nontender, no hepatosplenomegaly Musculoskeletal: Bilateral knee Physical exam Overall patient has varus alignment bilaterally, there is no atrophy or ecchymosis noted, +1 suprapatellar effusion in both knees, positive tenderness to both medial and lateral joint lines right knee, more medial sided tenderness to the left knee. negative patellar apprehension, positive crepitation noted to both knees with active ROM. bilateral knees stable to valgus and varus stress, junie negative, posterior drawer negative. Range of motion right knee 0/3/110, left knee 0/3/115. lower extremities are neurovascularly intact, calf soft and non tender, DP pulse +2 bilaterally. Principal Diagnosis Bilateral Knee Osteoarthritis Discharge Data Allergies Allergy/AdvReac Type Severity Reaction Status Date / Time oxycodone Allergy Mild itchy Verified 12/09/22 05:26 Consultations 12/04/22 13:37 Consult Hospitalist Routine Procedures Performed Operation Date: 12/09/22 07:15 Actual Procedures p Bilateral Total Knee Arthroplasty(Bilateral) - Gonzalze Gutierrez DO Ordered Studies 12/09/22 05:00 US - OR guided needle placemen Routine Hospital Course (1) History of total bilateral knee replacement: Patient:BETH JORGENSEN Admit Date:12/09/22 MR#:[id number] Att Phy:Gonzalez Gutierrez,D.ONishi Acct ID:[id number] Dee Dee Phy:Zoila Roberts PA-C Date:1960 Fam Phy: Age:62 Location:3E Sex:F Room/Bed:E304-1 cc: ~ *NOTICE TO RECEIVING [employer]/AGENCY This information is strictly Confidential and protected under [place] law. [place] law prohibits you from making any further disclosure of this information unless further disclosure is expressly permitted by the written consent of the person to whom it pertains or is authorized by law. A general authorization for the release of medical or other information is not sufficient for this purpose. Hospital accepts no responsibility if the information is made available to any other person, INCLUDING THE PATIENT. Date of Service December 10, 2022 Assessment & Plan (1) History of total bilateral knee replacement: Plan: POD #1 s/p Bilateral TKAs pt/ot dvt proph with GRAYSON/SCD/xarelto x 1 month plan for d/c home with HHPT, will d/c hemovacs prior to d/c poor pain control, currently ordered Hydrocodone due to prior rxn to Ox ycodone over 20 years ago, she states she had "itchiness". will switch to oxycodone this am to see if she tolerates this better, also order Benadryl prn. added Acetaminophen 1000mg tid. discussed if she has issues with Oxy, would switch back to [place] and possibly increase dose. Currently on Xarelto so unable to use Celebrex as well, has Dilaudid ordered for breakthrough pain. will see how she tolerates PT prior to d.c. Admission and Anticipated Discharge Date Admission Date: December 09, 2022 Supervising Physician Co-Signing Physician Notes Patient noted to have significant pain control issues this morning. She appears more comfortable currently. She was able to get up and walk to the bathroom with physical therapy. She does state that she has a little lightheaded, dizzy, and nauseous with sitting and standing. She will likely need to stay in the hospital at least until tomorrow. Subjective POD #1 s/p Bilateral TKAs Review of Systems Constitutional: no fever, no chills and no sweats Respiratory: no cough and no dyspnea Cardiovascular: no chest pain and no dyspnea Gastrointestinal: no abdominal pain, no nausea and no vomiting Physical Exam Physical Exam: Vital Signs Temp 36.8 C 12/10/22 04:06 Pulse 73 12/10/22 04:06 Resp 18 12/10/22 04:06 BP 125/83 12/10/22 04:06 Pulse Ox 100 12/10/22 04:06 O2 Del Method 12/10/22 04:06 O2 Flow Rate 3 12/09/22 10:10 Intake & Output 12/09/22 12/10/22 12/10/22 18:59 06:59 18:59 Intake Total 2406.667 / 4606.66 7 2200 / 4606.667 Output Total 1385 / 2785 1400 / 2785 Balance 1021.667 / 1821.66 7 800 / 1821.667 Weight 65.4 kg Intake: IV 656.667 / 2656.667 2000 / 2656.667 Lactated Ringe r's 1,000 ml @ 15 0 / 0 mls/hr IV .Q24 H [place] Rx#: [id number] Sodium Chlorid e 0.9% 1000ML 1, 656.667 / 2656.667 2000 / 2656.667 000 ml @ 100 m ls/hr IV .Q10H [place] Rx#:[id number] Tranexamic Aci d / 0.7% NaCl 1, 0 / 0 000 mg In 100 ml @ 600 mls/hr IV TODAY@0600 [place] Rx#:[id number] IV Perioperative 1450 / 1450 Oral 300 / 500 200 / 500 Output: Urine 1225 / 1225 Estimated Blood Loss 10 10 Other 1125 / 1125 Drain Output 150 / 425 275 / 425 Left Hemovac # 1 70 / 195 125 / 195 Right Hemovac #1 80 / 230 150 / 230 Musculoskeletal: Bilateral lower extremities: NVDI, calf SNT, negative alissa sign. DP palpable, able to wiggle toes/ankle movement without difficulty. dressing clean dry and intact. Results & Data ([facility]) Vital Signs (Past 12 Hours) Vital Signs Temp Pulse Resp BP Pulse Ox O2 Del Method 12/10/22 04:06 36.8 C 73 18 125/83 100 Room Air 12/09/22 22:06 36.9 C 70 18 125/76 100 Room Air 12/09/22 20:30 Room Air Laboratory Results Laboratory Results WBC 9.96 K/ul (4.8-10.8) 12/10/22 05:16 RBC 3.59 M/uL (3.93-5.22) L 12/10/22 05:16 Hgb 10.7 g/dl (12.0-16.0) L 12/10/22 05:16 Hct 31.9 % (34.1-44.9) L 12/10/22 05:16 MCV 88.9 fL (80.0-100.0) 12/10/22 05:16 MCH 29.8 pg (25.0-34.0) 12/10/22 05:16 MCHC 33.5 g/dL (32.0-36.0) 12/10/22 05:16 RDW Std Deviation 40.1 fL (36.4-46.3) 12/10/22 05:16 RDW Coeff of Moon 12.4 % (11.5-14.5) 12/10/22 05:16 Plt Count 336 K/uL (130-400) 12/10/22 05:16 MPV 10.0 fL (9.4-12.3) 12/10/22 05:16 Sodium 140 mmol/L (136-145) 12/10/22 05:16 Potassium 4.0 mmol/L (3.5-5.1) 12/10/22 05:16 Chloride 110 mmol/L (98-107) H 12/10/22 05:16 Carbon Dioxide 25 mmol/L (21-32) 12/10/22 05:16 Anion Gap 5 (3-11) 12/10/22 05:16 BUN 10 mg/dl (6-23) 12/10/22 05:16 Creatinine 0.67 mg/dl (0.6-1.2) 12/10/22 05:16 Est Cr Clr Drug Dosing 77.1 ml/min 12/10/22 05:16 Est GFR ( Amer) 110.7 ml/min 12/10/22 05:16 Est GFR (Non-Af Amer) 95.5 ml/min 12/10/22 05:16 BUN/Creatinine Ratio 14.9 (10-20) 12/10/22 05:16 Glucose 100 mg/dl (70-99(Fasting)) H 12/10/22 05:16 Calcium 8.2 mg/dl (8.5-10.1) L 12/10/22 05:16 D SARS-CoV-2, RNA, NAAT NEGATIVE (NEGATIVE) 12/09/22 Unknown Diagnostic Findings Impressions Knee X-Ray 12/09/22 10:37 XR knee LT 1 or 2V routine, XR knee RT 1 or 2V routine CLINICAL HISTORY: Surgical Post Op TECHNIQUE: 2 views of the bilateral knees were obtained. Comparison: Comparison is made to knee radiographs for 317 FINDINGS: Patient is status post total knee arthroplasty with expected postsurgical changes including soft tissue swelling and subcutaneous emphysema. No periarticular lucency or hardware fracture is seen. IMPRESSION: Expected postoperative changes of bilateral total knee arthroplasty. ACT 112: Negative or not required by law. Electronically signed by: Dion Monte M.D. 12/09/2022 11:02 AM Signed By: <Electronically signed by Glenn Cardoso PA-C> 12/10/22 0721 <Electronically signed by Geoffrey Bhandari M.D.> 12/10/22 1028 Date of Service December 11, 2022 Assessment & Plan (1) History of total bilateral knee replacement: Plan: POD #2 s/p Bilateral TKAs PT/OT protocols. Weightbearing as tolerated. Continue PT protocol and we will see how she ambulates today. We discussed that we would like to see her ambulating out in the hallways before having her go home. DVT proph with GRAYSON/SCD/xarelto x 1 month Plan for d/c home with HHPT -plan for discharge today if patient is ambulating well. Pain management-oxycodone, acetaminophen, Toradol, hydromorphone -pain control is much better today. Admission and Anticipated Discharge Date Admission Date: December 09, 2022 Subjective Postop day 2 Patient currently sitting up in bed awake and alert. Patient states that she is due for some pain medication. She is starting to have some increased pain but has been overall, controlled fairly well through the night. She states he has some discomfort yesterday that was not controlled however once she was able to get the scheduling down, that she has been having much better pain control. Patient states that she ambulated to the bathroom yesterday but however that was at. No other complaints at this time. Denies shortness of breath, chest pain, lightheadedness. Physical Exam Physical Exam: Tracee dressings are clean, dry, and intact. Functioning well. Calves are soft nontender. Neurovascular intact. Toes are mobile. Mild swelling in both knees consistent with surgery. Hemovac drains have been removed. Results & Data ([facility]) Vital Signs (Past 12 Hours) Vital Signs Temp Pulse Pulse Resp BP Pulse Ox O2 Del Method 12/11/22 07:43 36.5 C 64 A 15 128/76 100 Room Air 12/10/22 21:30 36.8 C 68 18 127/74 100 Room Air Laboratory Results Laboratory Results WBC 7.01 K/ul (4.8-10.8) 12/11/22 06:24 RBC 3.75 M/uL (3.93-5.22) L 12/11/22 06:24 Hgb 11.3 g/dl (12.0-16.0) L 12/11/22 06:24 Hct 34.1 % (34.1-44.9) 12/11/22 06:24 MCV 90.9 fL (80.0-100.0) 12/11/22 06:24 MCH 30.1 pg (25.0-34.0) 12/11/22 06:24 MCHC 33.1 g/dL (32.0-36.0) 12/11/22 06:24 RDW Std Deviation 41.4 fL (36.4-46.3) 12/11/22 06:24 RDW Coeff of Moon 12.6 % (11.5-14.5) 12/11/22 06:24 Plt Count 291 K/uL (130-400) 12/11/22 06:24 MPV 9.7 fL (9.4-12.3) 12/11/22 06:24 Sodium 140 mmol/L (136-145) 12/11/22 06:24 Potassium 3.9 mmol/L (3.5-5.1) 12/11/22 06:24 Chloride 107 mmol/L (98-107) 12/11/22 06:24 Carbon Dioxide 28 mmol/L (21-32) 12/11/22 06:24 Anion Gap 5 (3-11) 12/11/22 06:24 BUN 12 mg/dl (6-23) 12/11/22 06:24 Creatinine 0.71 mg/dl (0.6-1.2) 12/11/22 06:24 Est Cr Clr Drug Dosing 72.8 ml/min 12/11/22 06:24 Est GFR ( Amer) 107.3 ml/min 12/11/22 06:24 Est GFR (Non-Af Amer) 92.6 ml/min 12/11/22 06:24 BUN/Creatinine Ratio 16.9 (10-20) 12/11/22 06:24 Glucose 87 mg/dl (70-99(Fasting)) 12/11/22 06:24 Calcium 8.4 mg/dl (8.5-10.1) L 12/11/22 06:24 SARS-CoV-2, RNA, NAAT NEGATIVE (NEGATIVE) 12/09/22 Unknown Signed By: <Electronically signed by Anselmo Pittman PA-C> 12/11/22 0937 Created:12/10/22 0716 Total Time Total Time Spent Total Time Spent (In Minutes): 10 Discharge Plan Discharge Items Patient Disposition: Home - Home Health Services Reason For Visit: Bilateral Primary Osteoarthritis of Knee Discharge Diagnosis: Bilateral knee osteoarthritis Activity: Per Instructions section Weightbearing: Full weightbearing Weightbearing Comment: WBAT with walker Non-emergency contact: Surgeon Call non-emergency contact if: you have any medication questions, your pain is not controlled, your temperature is above 101.5, your wound has increased redness and your wound has increased drainage Follow-up/Referrals: Gonzalez Gutierrez DO [Surgeon] - (Follow up with Dr. Gutierrez or his PA in 2 weeks from the day of surgery for your first post operative visit) Zoila Roberts PA-C [Primary Care Provider] - Diet: Regular Addtl Attending Provider Instructions: ACTIVITY RECOMMENDATIONS: SELF CARE INSTRUCTIONS AFTER BILATERAL TOTAL KNEE REPLACEMENT A. You may need to continue a physical therapy program after discharge from the hospital. There are several options available to you. Your doctor will assist you in selecting the best one for you. 1. An out-patient facility 2 to 3 times a week for therapy or home therapy. 2. Continue working on all exercises taught to you in the hospital. Your goals should be to increase bending of your knee to 90 degrees and beyond and to fully straighten your knee. B. You may progress at your own pace from walking with a walker or crutches to a cane; then to no assistive devices. C. Make walking a part of your daily routine. Be up as much as comfortable with rest periods throughout the day. Rest with leg elevation is very important. Use the ice wrap frequently for the first 3-4 weeks. D. There are no restrictions on activities. You may ride in a car, shop, participate in trade show manager and all social activities. E. Wear the long elastic stockings (GRAYSON hose) 20 hours a day for 2 weeks after surgery. They can be removed several times a day for laundering and for a bath. F. You may shower, no tub baths until cleared by your doctor. SPECIAL CARE INSTRUCTIONS: VERY IMPORTANT TO READ AND REVIEW A. There are a few signs you need to watch for after you are home. Call [facility] [place] if you notice any of the followin. Increased severe knee pain. Some pain is expected especially when you exercise. 2. Increased swelling in your leg or knee; pain or swelling of the calf muscle in either lower leg. 3. Any fluid drainage from the incision. 4. Shortness of breath or chest pain. B. Please call [facility] at if you have any concerns or questions about your operation or recovery. The doctor or his nurse will return your call promptly. C. You must take antibiotics before dental work, bladder, bowel or other surgery. Your doctor will provide you with a permanent care to carry describing this precaution. IMPORTANT: * REMEMBER TO TAKE XARELTO 10MG PO DAILY FOR 4 WEEKS. THIS IS YOUR BLOOD THINNER. * CALL IF INCREASED PAIN, REDNESS, DRAINAGE OR FEVER GREATER THAT 101. * WEAR GRAYSON HOSE 20 HOURS PER DAY FOR 2 WEEKS. * TRACEE Dressing - This is a large suction dressing covering your incision. This will help pull any excess drainage from the wound and allow your incision to heal properly. You may shower with this if you can keep the unit outside of the shower. If any bleeding or leakage is noted please call your doctor's office. This will remain on your incision for 7 days and then should be removed. This can be done yourself or by the home nursing staff if applicable. The entire unit is disposable once removed. Once removed, keep incision clean and dry. If redness or drainage is noted, please call your surgeon. . * ONCE YOUR TRACEE DRESSINGS ARE REMOVED, FOLLOW INSTRUCTIONS BELOW. * DERMABOND Prineo- This is a mesh tape dressing that is covered with glue. It should remain in place until the incision is properly healed, usually 10-14 days. This dressing is designed to naturally slough off. You may trim the excess mesh tape as it peels off. Incision may be briefly wet in a shower. Dry immediately by blotting with a clean, dry towel. Do not bath or swim until instructed by your doctor. Do not scratch, rub, or pick at the dressing. Do not apply any topical ointments or lotions until dressing is completely removed and/or instructed by your doctor. There may be a small piece of suture material at one end of your incision. Do not pull or trim this. If it is bothersome or catching on clothing, you may cover it with a band-aid. FOLLOW UP VISIT: If appointment is not already scheduled: Please call [facility] [place] to make a follow-up appointment for 2 weeks after your surgery at . Pending Studies at Discharge: No Stand-Alone Forms: [facility] [address], Smoking Cessation Medications and DC Order Prescriptions: New acetaminophen [Tylenol Extra Strength] 500 mg Tablet 1,000 mg PO Q8H 21 Days Qty: 126 0RF diphenhydramine HCl [Benadryl] 25 mg Capsule 25 mg PO Q8 PRN (Reason: itching) Qty: 30 0RF Xarelto 10 mg Tablet 10 mg PO DAILY 28 Days Qty: 28 0RF docusate sodium 100 mg Capsule 100 mg PO BID 10 Days Qty: 20 0RF cefadroxil 500 mg capsule 500 mg PO BID 14 Days Qty: 28 0RF oxycodone 5 mg tablet 5 - 10 mg PO Q6H PRN (Reason: pain) Qty: 30 0RF Rx Instructions: ongoing therapy, supervising dr gaby gutierrez. max 6 tabs in 24 hours fluconazole [Diflucan] 150 mg tablet 150 mg PO DAILY Qty: 1 0RF Rx Instructions: administer on day 1 of therapy Continued gabapentin 100 mg Capsule 100 mg PO TID Discontinued meloxicam 15 mg Tablet 15 mg PO QAM medroxyprogesterone [Provera] 5 mg Tablet 5 mg PO QAM estradiol [Estrace] 0.5 mg Tablet 0.5 mg PO QAM Admission Data Admit Date/Time: 12/09/22 10:37 Attending Provider: Gonzalez Gutierrez Admit Provider: Gonzalez Gutierrez Primary Care Provider: Zoila Roberts Other Providers: Farideh Schaffer I. ; Noah Dixon ; Delicia Matthew Other Interventions: Discharge Summary Assessment (RN) Last Done: 12/11/22 14:48
== END 2022-12-11 15:30 | disposition home health service (06) ==
LOC: PACUINP 04:53 → ASU 04:53 → 3E 15:09

== ENCOUNTER 2025-09-10 11:11 | Observation (INO) ==
--- NOTE | 2025-08-03 09:45 | PAT Medication Instructions ---
Medication Instructions Date of Service August 03, 2025 Home Medications doxepin 50 mg capsule 50 mg PO HS insomnia duloxetine 30 mg capsule,delayed release 30 mg PO QAM knee pain estradiol 0.5 mg tablet 0.5 mg PO QAM gabapentin 300 mg capsule 300 mg PO TID trigeminal neuralgia medroxyprogesterone 5 mg tablet 5 mg PO QAM tirzepatide (weight loss) 2.5 mg/0.5 mL subcutaneous solution 2.5 mg subcut WK triamcinolone acetonide 0.5 % topical cream 1 applic topical UD PRN Skin Ir ritation ASK your surgeon for instructions estradiol 0.5 mg tablet 0.5 mg PO QAM medroxyprogesterone 5 mg tablet 5 mg PO QAM STOP 7 days prior to surgery tirzepatide (weight loss) 2.5 mg/0.5 mL subcutaneous solution 2.5 mg subcut WK STOP taking 24 hours before surgery triamcinolone acetonide 0.5 % topical cream 1 applic topical UD PRN Skin Irritation Take morning of surgery With a small sip of water, OTHERWISE NOTHING TO EAT OR DRINK AFTER MIDNIGHT: duloxetine 30 mg capsule,delayed release 30 mg PO QAM knee pain gabapentin 300 mg capsule 300 mg PO TID trigeminal neuralgia Take evening before surgery doxepin 50 mg capsule 50 mg PO HS insomnia gabapentin 300 mg capsule 300 mg PO TID trigeminal neuralgia Other Notes If you have any questions please call us at [phone] or [phone] or [phone] or [phone]
--- NOTE | 2025-08-08 09:02 | Anesthesiology Consultation ---
Date of Service August 08, 2025 Assessment & Plan (1) Encounter for pre-operative examination: Plan - chronic anemia, most recent Hgb below 11. Optimization form to be faxed to [facility] PCP, Yandy Tripp. - PCP office visit 07/20/25 [facility]: "...Chronic right knee pain post-replacement with upcoming revision surgery...Trial duloxetine once daily..." - tirzepatide instructions: Patient informed at PAT visit to stop 7 days prior to surgery-voiced understanding. Chart Review Chart Review: Pending: Refer to Additional Notes / Consult section and Patient seen in Pre Admission Testing Teaching & Discussion Pre-Anesthesia Teaching/Discussion Notes: Instructed NPO after midnight before surgery, except medications with 15 cc of water. Medication instructions provided according to the [facility] guidelines. History Surgery Operation Date: 09/10/25 10:05 Proposed Procedures p Partial Versus Complete Revision Right Total Knee Arthroplasty - Luis Rubio, DO Height/Weight Height: 5 ft 4 in Weight: 64.3 kg Allergies Allergy/AdvReac Type Severity Reaction Status Date / Time No Known Allergies Allergy Verified 08/03/25 08:46 Medications Home Medications Medication Instructions Recorded Confirmed Last Taken doxepin 50 mg capsule 50 mg PO HS insomnia 08/03/25 08/03/25 Unknown duloxetine 30 mg capsule,delayed 30 mg PO QAM knee pain 08/03/25 08/03/25 Unknown release estradiol 0.5 mg tablet 0.5 mg PO QAM 08/03/25 08/03/25 Unknown gabapentin 300 mg capsule 300 mg PO TID trigeminal neuralgia 08/03/25 08/03/25 Unknown medroxyprogesterone 5 mg tablet 5 mg PO QAM 08/03/25 08/03/25 Unknown tirzepatide (weight loss) 2.5 2.5 mg subcut WK 08/03/25 08/03/25 08/02/25 mg/0.5 mL subcutaneous solution triamcinolone acetonide 0.5 % 1 applic topical UD PRN Skin 08/03/25 08/03/25 Unknown topical cream Irritation Past Medical History Medical History (Updated 08/08/25 @ 10:20 by Karlee Sotomayor PA-C) BPPV (benign paroxysmal positional vertigo) listed in [facility] EMR, resolved with gabapentin for trigeminal neuralgia per pt Degenerative arthritis History of COVID-19 (~2020) 07/2021--mild symptoms, no symptoms now Hx of colonic polyps Osteoarthritis Post-menopause on HRT (hormone replacement therapy) Trigeminal neuralgia of left side of face stable and controlled Patient denies h/o stroke, seizures, heart attack, heart failure, DM, HTN, blood clots/DVTs or blood transfusions. Exercise / Class Metabolic Activity III < 4 Walking/Shop/Light housework (denies chest discomfort or shortness of breath with usual activities, not walking up stairs due to knee dysfunction) Past Family History Family History Father Lung cancer Mother Scleroderma Other No family history of adverse response to anesthesia Past Surgical History Surgical History (Updated 08/08/25 @ 09:26 by Karlee Sotomayor PA-C) History of augmentation of both breasts History of bilateral knee arthroplasty History of colonoscopy History of endometrial ablation History of wisdom tooth extraction Past Anesthesia History No Hx of Anesthesia Complications and No Family Hx of Anesthesia Complications History of PONV No Hx of PONV and No Hx of Motion Sickness Social History Smoking Status: Former smoker Do You Dip or Chew Tobacco: No Smoking End Date: quit 40 years ago Hx Alcohol Use: Yes alcohol intake frequency: holidays/special occasions only Hx Substance Use: No substance use type: does not use Review of Systems Patient denies chest pain, shortness of breath, dyspnea on exertion, snoring, witnessed apneas, reflux, fever, chills, cough, wheezing, or palpitations. Physical Exam Vital Signs Vitals BP 148/85 P 72 TEMP 98.2 SP02 9% on RA RESP 18 Physical Patient resting comfortably in chair in no acute distress, alert and oriented, responding appropriately throughout visit Full cervical extension range of motion without pain TMD 3.5 finger breadths Mallampati Score 2 Dentition: several crowns, implants and bridge, denies chipped or loose teeth Lungs: normal respiratory effort. Good air movement, clear throughout to auscultation, no adventitious breath sounds Cardiac: regular rate and rhythm, no murmurs noted Carotid arteries: negative bruit bilat Lab Results Anesthesia Preop Results Results Anesthesia Widget: WBC 5.40 K/ul (4.8-10.8) 08/08/25 Hgb 10.4 g/dl (12.0-16.0) L 08/08/25 Hct 33.0 % (37.0-47.0) L 08/08/25 Plt 428 K/uL (130-400) H 08/08/25 Na 138 mmol/L (136-145) 08/08/25 K 4.0 mmol/L (3.5-5.1) 08/08/25 Cl 106 mmol/L (98-107) 08/08/25 CO2 28 mmol/L (21-32) 08/08/25 BUN 15 mg/dl (6-23) 08/08/25 Creat 0.68 mg/dl (0.6-1.2) 08/08/25 Glucose Level 87 mg/dl (70-99(Fasting)) 08/08/25 PT 10.2 Seconds (9.0-12.0) 08/08/25 PTT 25 Seconds (21-31) 08/08/25 INR 0.9 (0.9-1.1) 08/08/25 Blood Type A Positive 08/08/25 Antibody Screen NEGATIVE 08/08/25 Testing Laboratory Results Chronic anemia, Hgb 10-11 over past 2 years. Surgeon's office made aware. Electrocardiogram Date: 08/08/25 NSR, rate 70 bpm Low voltage QRS No significant change vs 10/12/2022 EKG Chest X-Ray Date: 08/08/25 Heart size and pulmonary vasculature are normal. Stable hyperexpanded lungs suggesting emphysema. Stable small area of reticular opacity lateral right mid to upper lung. No consolidation or pleural effusion. IMPRESSION: No acute findings.
--- NOTE | 2025-09-06 09:46 | History & Physical Report ---
Date of Service September 06, 2025 Assessment & Plan (1) Painful total knee replacement, right: We will proceed with a revision right total knee arthroplasty as described to her in the office. Postoperatively, she will be started on aspirin for DVT prophylaxis and kept overnight in hospital for postop medical management. She plans to go to [facility] physical therapy at discharge. History of Present Illness Chief Complaint: Painful right knee replacement. Primary Care Provider: Zoila Blanton PA-C Beth is a pleasant 65-year-old female who underwent bilateral knee replacements by Dr. Wilcox in 2022. She has done great with her left knee. Unfortunately, her right knee has always given her problems. She has had no acute events. It always hurt. It is stiff. It is painful. She has no effusion. She had a full infection workup which was negative. She had a bone scan, which was essentially negative. A CAT scan and MRI of the right knee all were essentially negative. She continues to deal with a lot of pain and stiffness to that right knee. After failing extensive conservative treatment, she has elected proceed with a revision right knee replacement. Allergies Allergy/AdvReac Type Severity Reaction Status Date / Time No Known Allergies Allergy Verified 08/03/25 08:46 Home Medications Medication Instructions Recorded Confirmed Type doxepin 50 mg capsule 50 mg PO HS insomnia 08/03/25 08/03/25 History duloxetine 30 mg capsule,delayed 30 mg PO QAM knee pain 08/03/25 08/03/25 History release estradiol 0.5 mg tablet 0.5 mg PO QAM 08/03/25 08/03/25 History gabapentin 300 mg capsule 300 mg PO TID trigeminal neuralgia 08/03/25 08/03/25 History medroxyprogesterone 5 mg tablet 5 mg PO QAM 08/03/25 08/03/25 History tirzepatide (weight loss) 2.5 2.5 mg subcut WK 08/03/25 08/03/25 History mg/0.5 mL subcutaneous solution triamcinolone acetonide 0.5 % 1 applic topical UD PRN Skin 08/03/25 08/03/25 History topical cream Irritation Past Med/Surg History Problem List (Updated 09/06/25 @ 09:45 by Luis Rubio DO) Painful total knee replacement, right 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 Post-menopause on HRT (hormone replacement therapy) Degenerative arthritis of knee, bilateral Encounter for pre-operative examination Trigeminal neuralgia of left side of face Reason for gabapentin (dx'ed three years ago)- stable and controlled Medical History BPPV (benign paroxysmal positional vertigo) listed in S EMR, resolved with gabapentin for trigeminal neuralgia per pt Hx of colonic polyps Trigeminal neuralgia of left side of face stable and controlled Post-menopause on HRT (hormone replacement therapy) Degenerative arthritis Osteoarthritis History of COVID-19 (~2020) 07/2021--mild symptoms, no symptoms now Surgical History History of wisdom tooth extraction History of colonoscopy History of bilateral knee arthroplasty History of endometrial ablation History of augmentation of both breasts Family History Father Lung cancer Mother Scleroderma Other No family history of adverse response to anesthesia Social History Smoking Status: Former smoker Tobacco Type: Cigarettes Second Hand Exposure: No; Do You Dip or Chew Tobacco: No; Hx Alcohol Use: Yes Alcohol Intake Frequency: 2-4 x/Month Hx Substance Use: No Preferred Language: Armenian Communication Ability: Effective Hotel Or Motel Receptionist Required: No Beliefs That Will Affect Care: None Current Living Situation: Alone Feels Safe at Home: Yes Assistive Devices: Glasses Review of Systems All systems reviewed & are unremarkable except as noted in HPI & below. Physical Exam On physical exam of the right knee, she has no effusion. She is good range of motion. She has a little laxity with anterior posterior shift testing. She walks with a very antalgic gait. She has a lot of pain around the knee with provocative testing.. Constitutional WD/WN, vitals as above Eyes PERRL, conjunctivae normal, anicteric sclerae ENMT external ear and nose normal, oropharynx normal Neck trachea midline, no thyromegaly Respiratory normal respiratory effort Cardiovascular RRR, no murmur, no edema Gastrointestinal (Abdomen) normal bowel sounds, soft, nontender, no hepatosplenomegaly Psychiatric A+Ox3, euthymic affect Results & Data Results & Data Laboratory Results . Diagnostic Findings . PG Care Time/CCT Total # of Minutes Spent Total Time Spent with Patient: Total time spent is greater than 50% in coordination of care (as documented) at patient's floor/unit and/or counseling patient: Coding Level of Care Code None Diagnoses Painful total knee replacement, right T84.84XA; Z96.651
[~2025-09-10 11:11] MED LIST: PROPOFOL IV EMULSION 10 MG/ML 100 ML VIAL IV ONE; ROPIVACAINE 0.5% 5 MG/ML 30 ML VIAL ONE
[2025-09-10] MEDS ORDERED: LIDOCAINE 2% 2 ML VIAL/AMP(20MG/ML) INFIL ONE (12:02)
[2025-09-10] MEDS ORDERED: MIDAZOLAM HCL 1 MG/ML 2ML VIAL ONE (12:09)
[2025-09-10] MEDS: ACETAMINOPHEN 500 MG TAB PO SCH ×2 (12:12→21:56)
[2025-09-10] MEDS: GABAPENTIN 600 MG DOSE PO SCH (12:13)
[2025-09-10] MEDS: LR 60ML/HR IV SCH (12:31)
[2025-09-10] MEDS: dexAMETHasone**PF** 10 MG/ML VIAL IV SCH (12:31)
[2025-09-10] MEDS: LR 500ML BOLUS, THEN 15ML/HR IV SCH (12:31)
--- NOTE | 2025-09-10 12:54 | History & Physical Bridge Note ---
Date of Service September 10, 2025 History & Physical Bridge Note I have examined the patient, reviewed the History & Physical and in the interval since the performance of the History & Physical I have noted the following changes of clinical significance: no changes noted
[2025-09-10] MEDS: TRANEXAMIC ACID 1,000 MG **IV Pre-op IV SCH (13:34)
[2025-09-10] MEDS ORDERED: BUPIVACAINE 0.5 % 5 MG/1 ML PF 10ML VIAL ONE (13:39)
[2025-09-10] MEDS ORDERED: ONDANSETRON INJ 2 MG/ML 2 ML VIAL ONE (14:28)
[2025-09-10] MEDS: ORTHO JOINT ANESTHETIC ONE (14:49)
[2025-09-10] MEDS: ROPIV 0.5% 246mg, Ketorolac 30mg, EPINEPHrine 0.5mg in NSS INFIL SCH (14:49)
--- NOTE | 2025-09-10 16:15 | XRay Report ---
TWO VIEWS RIGHT KNEE CLINICAL HISTORY: Postoperative examination. FINDINGS: AP and crosstable lateral portable views of the right knee are obtained. A right knee arthr oplasty is in near anatomic alignment. There has been undersurface remodeling of the patella. No acut e fracture is seen. Subcutaneous gas and soft tissue swelling around the knee are expected postsurgic al findings. IMPRESSION: Expected postoperative changes status post right knee arthroplasty. No acute fracture is seen. ACT 112: Negative or not required by law. Electronically signed by: Garett De La Torre M.D. 09/10/2025 4:14 PM
--- NOTE | 2025-09-10 16:17 | Anesthesiology Progress Note ---
Date of Service September 10, 2025 Anesthesia Post Procedure Vital Signs Vital Signs: Temp Pulse Resp BP Pulse Ox O2 Del Method O2 Flow Rate 09/10/25 16:00 82 16 122/77 98 Room Air 09/10/25 15:50 83 17 117/76 100 Oxymask 2 09/10/25 15:44 97.7 F 79 22 119/77 100 Oxymask 4 09/10/25 11:26 97.9 F 76 18 157/95 H 96 Room Air Transfer of Care Handoff Completed per policy Notes Mental Status: alert / awake / arousable and participated in evaluation Patient Amnestic to Procedure: Yes Nausea / Vomiting: adequately controlled Pain: adequately controlled Airway Patency, RR, SpO2: stable & adequate BP & HR: stable & adequate Hydration State: stable & adequate Neuraxial Anesthesia: was administered and sensory block is resolving Anesthetic Complications: no major complications apparent and Pt Satisfied with anesthetic care
--- NOTE | 2025-09-10 16:21 | Operative Report ---
PG Post Operative Report Pre & Post Diagnosis Operation Date: 09/10/25 13:00 Pre-Op Diagnosis: Painful Right Total Knee Arthroplasty Post-Op Diagnosis: Painful Right Total Knee Arthroplasty I identified the patient and participated in the time-out.: Yes Procedure Operation Date: 09/10/25 13:00 Actual Procedures p open extensive debridement and Poly Exchange Right Total Knee Arthroplasty(Right) - Luis Rubio DO Surgeon Luis Rubio DO Taxi Truck Driver Rosana Basilio PA-C Estimated Blood Loss 30 Findings Consistent with Post-Op Diagnosis Specimens None Indications Beth is a pleasant 65-year-old female who underwent bilateral knee replacements by Dr. Wilcox over a year ago. Her left knee did great. Unfortunately she has always dealt with pain in her right knee. Hurts with almost every step she takes. Full workup from Dr. Wilcox was negative. He did a full infectious workup including aspiration. He also has a bone scan of the knee which was negative. She came to me for second opinion. There was something obviously wrong with the right knee. She could not walk on it without pain and she could not live with it the way it was. We elected to do an exploration of her right knee. Description of Procedure On September 10, 2025 Beth arrived at [facility] for the above procedure. She was seen in the preoperative holding area and the operative extremity identified and signed. She given a preoperative antibiotic and a spinal anesthetic. She was taken back the operative room and laid on table supine position. She was put under basic sedation. The right knee was prepped and draped sterile fashion. A timeout was done. The patient and the operative extremity was properly identified. On preoperative evaluation, there was no effusion. There is good range of motion of the knee. There was no varus valgus laxity and no anterior posterior laxity. The previous midline incision was opened back up. Dissection was taken down through the fascia. A medial parapatellar arthrotomy was done. There was a small amount of synovial fluid in the joint. Nothing appeared infected. The patella was then slid laterally and the knee was exposed. There was a lot of scar tissue that was incarcerated within the knee joint. This was removed with a cautery. Time was spent removing all scar tissue from the medial and lateral gutters. There was also excessive scar tissue on the undersurface of the patella. This was removed. The knee was brought through full range of motion and everything seemed to be stable and in good alignment. The polyethylene insert was then removed. After all soft tissue was removed from around the components, the femoral and tibial components were hit fairly hard with a mallet and a bone tamp. There was no motion of the components. The components were well-fixed. The femur seemed to be the correct size and in the correct alignment. The tibial implant seem to be the correct size and in the correct alignment and rotation. Soft tissue was removed from the trochlea. Several different polyethylene inserts were trialed and a size 10 medial congruent seem to be the best fit. With the trial poly in the knee seem to be very stable. At this point I did not see any reason to remove the femoral component and put in a constrained liner. The final size 10 polyethylene insert was then snapped into place. There was some scar tissue around the lateral patellofemoral ligaments. This was removed. This almost felt like a little bit of a lateral release for the patella. The patella then tracked much better. The knee was then irrigated with 3 L normal saline solution. A 3-minute Betadine lavage was then done. Surrounding soft tissues were injected with an orthopedic pain control cocktail. The extensor mechanism was then closed with #1 Vicryl. Skin was closed with 2- 0 Vicryl and a V-Loc suture. She was then placed in a soft compressive dressing. She was then transferred to a hospital bed. She was taken to the postanesthesia care unit in stable condition. She tolerated the procedure well. Rosana Basilio PA-C, was present for the entire procedure. He was critical for patient positioning, prepping, draping, retraction exposure, wound closure and application of sterile dressing. I attest to the content of the Intraoperative Record and any orders documented therein. Any exceptions are noted below.
[2025-09-10] MEDS ORDERED: METOCLOPRAMIDE HCL INJ 5 MG/ML 2 ML VIAL IV PRN (18:02)
[2025-09-10] MEDS ORDERED: ONDANSETRON INJ 2 MG/ML 2 ML VIAL IV PRN (18:02)
[2025-09-10] MEDS ORDERED: TRIAMCINOLONE ACET 0.5% CR 15 GM TUBE TOP PRN (18:02)
[2025-09-10] MEDS ORDERED: diphenhydrAMINE Capsule 25 MG CAP PO PRN (18:02)
[2025-09-10] MEDS ORDERED: MAGNESIUM HYDROXIDE SUSP 30 ML UDC PO PRN (18:02)
[2025-09-10] MEDS ORDERED: NALOXONE HCL 0.4 MG/1 ML VIAL/CARP IV PRN (18:02)
[2025-09-10] MEDS: KETOROLAC TROMETHAMINE 15 MG/ML VIAL IV SCH (18:51)
[2025-09-10] MEDS: SODIUM CHLORIDE 0.9% 1,000 ML IV SCH (20:24)
[2025-09-10] MEDS: SENNA 8.6 MG TAB PO SCH (20:25)
[2025-09-10] MEDS: DOXEPIN HCL 50 MG CAPSULE PO SCH (20:25)
[2025-09-10] MEDS: DOCUSATE SODIUM 100 MG CAP PO SCH (20:25)
[2025-09-10] MEDS: GABAPENTIN 300 MG CAP PO SCH (20:25)
[2025-09-11 08:22] VITALS: RESP 18
--- NOTE | 2025-09-11 09:16 | Orthopedic Progress Note ---
Date of Service September 11, 2025 Assessment & Plan (1) Painful total knee replacement, right: * Continue Current Treatment * Disposition: home * Daily treatment: Physical Therapy/ Occupational Therapy per protocol * Weight bearing status: WBAT * Continue to monitor for ABLA * Pain control * DVT prophylaxis, ASA * Office/hospital f/u 2 weeks for progress check and staple/suture removal * Plan for discharge today pending PT/OT clearance Subjective . Active Problems: S/p revision R TKA, poly swap POD 1 65 y/o female s/p right revision TKA/poly swap. Doing well overall, pain managed and improved function. Denies fever/chills, chest pain/SOB, nausea/vomiting. Otherwise no complaints. Review of Systems All systems reviewed & are unremarkable except as noted in HPI & below. Physical Exam . * General: Alert and oriented, no acute distress * Constitutional: well-developed, well-nourished. * Respiratory: Normal respiratory effort, no distress * Gastrointestinal: No tenderness to palpation, no rigidity or guarding. * Skin: No rash or lesion. * Neurologic: Grossly normal * Musculoskeletal: Right knee surgical dressing CDI, not removed for exam. Otherwise no obvious deformity or overlying skin changes RLE. Diffuse TTP distal thigh and knee region. Otherwise no specific tenderness of proximal thigh, lower leg, foot/ankle. AROM knee flexion 90 degrees. AROM foot/ankle intact. Sensation intact plantar/dorsal foot. Brisk capillary refill. Results & Data Results & Data Laboratory Results . Diagnostic Findings . Knee X-Ray 09/10/25 15:44 TWO VIEWS RIGHT KNEE CLINICAL HISTORY: Postoperative examination. FINDINGS: AP and crosstable lateral portable views of the right knee are obtained. A right knee arthroplasty is in near anatomic alignment. There has been undersurface remodeling of the patella. No acute fracture is seen. Subcutaneous gas and soft tissue swelling around the knee are expected postsurgical findings. IMPRESSION: Expected postoperative changes status post right knee arthroplasty. No acute fracture is seen. ACT 112: Negative or not required by law. Electronically signed by: Garett De La Torre M.D. 09/10/2025 4:14 PM PG Care Time/CCT Total # of Minutes Spent Total Time Spent with Patient: Total time spent is greater than 50% in coordination of care (as documented) at patient's floor/unit and/or counseling patient: Coding Level of Care Code 11527 Post Operative Follow-Up Diagnoses Painful total knee replacement, right T84.84XA; Z96.651
[2025-09-11] MEDS: MULTIVITAMIN TAB PO SCH (09:18)
[2025-09-11 11:04] VITALS: BP 135/79; TEMP 97.7; O2SAT 96
[2025-09-11 11:17] VITALS: PULSE 81
== END 2025-09-11 11:27 | disposition home or self-care (01) ==
LOC: ASU 11:11 → 3E 11:11